=== PATIENT | female | born 1975 | race Caucasian/White ===

== ENCOUNTER 2016-07-15 15:41 | Emergency (ER) | payer BC ==
[2016-07-15 17:10] VITALS: RESP 16
--- NOTE | 2016-07-15 17:44 | UCPHY ---
H & P Time Seen by Provider: 07/15/16 17:17 Patient Type: New HPI/ROS: This patient complains of left groin pain over the past 2 days. She is uncertain if this is musculoskeletal or not. She has been taking yoga classes 2 times a week in recent months which is new for her. But she does not recall any injuries during yoga class. She states that the discomfort is mild baseline becomes more severe at times with movement or bending forward flexing her thigh. She became apprehensive with her symptoms today at home after talking to the Call line nurse and felt lightheaded when she stood up/a near- syncope type episode by her description with brief paresthesias down her left arm. The lightheadedness has resolved. No other symptoms now except for the localized discomfort to the left inguinal canal region. ROS: No fevers. No fatigue. No other constitutional symptoms HEENT: No complaints pulmonary: Patient did have a cough last week that has resolved. Cardiovascular: No chest pain. GI: No nausea vomiting. No constipation. She has noticed any obvious anatomical bulge to the area. She reports that she has never had inguinal pain like this from her kidney stones. 10 point ROS is otherwise negative. Past Medical/Surgical History: Past surgical history: C-sections x2. Kidney stones Smoking Status: Current some day smoker Physical Exam: General Appearance: Alert, no distress. Eyes: Pupils equal and round no pallor or injection. ENT, Mouth: Mucous membranes moist. Ears: External canals and TMs clear bilaterally. Respiratory: There are no retractions, lungs are clear to auscultation. Cardiovascular: Regular rate and rhythm. No murmur gallop rub. She maintains 2 + symmetric radialis pulses bilaterally. Gastrointestinal: Normoactive, soft, mild left inguinal tenderness with a slight bulge with Valsalva maneuver. This recreates her pain and causes tenderness with palpation of the area. She also has mild pain with abduction of the left thigh versus resistance but again points to the inguinal region as the source of this pain. She maintains full range of motion in her hip in other directions without change in level of discomfort. Neurological: Alert with no focal deficits. No light touch abnormalities to upper extremities. 5/5 strength is maintained throughout. Skin: dry, no rashes. There is no erythema, warmth to touch or ecchymosis overlying the affected area. Extremities are symmetrical, full range of motion. Psychiatric: Mood and affect are normal DIFFERENTIAL DIAGNOSIS: After history and physical exam differential diagnosis was considered for inguinal hernia, femoral hernia, musculoskeletal strain Constitutional: Initial Vital Signs Temperature (C) 36.7 C 07/15/16 16:59 Heart Rate 91 07/15/16 16:59 Respiratory Rate 16 07/15/16 16:59 Blood Pressure 137/63 H 07/15/16 16:59 O2 Sat (%) 99 07/15/16 16:59 O2 Delivery Mode Room Air Allergies/Adverse Reactions: cephalexin monohydrate [From Keflex] Allergy (Verified 07/15/16 16:58) Home Medications: Medication Instructions Recorded NO HOME MEDICATIONS 07/30/10 MDM/Departure - [facility] ED Course/Re-evaluation: Clinically, findings are most consistent with inguinal hernia. I counseled regarding this. She will follow up with Dr. Lincoln-general surgeon church communications administrator for further evaluation. There is no clinical evidence to suggest incarcerated hernia or other complicating factors at this time. - Depart Clinical Impression: Inguinal hernia Qualifiers: Obstruction and gangrene presence: without obstruction or gangrene Laterality: unilateral Recurrence: non-recurrent Qualifier Code: (K40.90) Unilateral inguinal hernia, without obstruction or gangrene, not specified as recurrent Instructions: Inguinal Hernia (ED) Additional Instructions: Diagnosis: Inguinal [id number] Plan: Ibuprofen and Tylenol for discomfort as needed Avoid lifting more than 10 lb or so Avoid heavy exertion Use a stool softener if he develops any constipation avoid heavy straining Call Dr. Puri-general surgeon to arrange follow-up appointment for further evaluation. Go to the emergency department for any significant worsening despite the treatment plan Stand Alone Forms: Work Limited Duty Referrals: NONE *PRIMARY CARE P,. [Primary Care Provider] - As per Instructions Benjamín Puri MD [Medical Doctor] - As per Instructions - PQRS PQRS Measurement: NA
[2016-07-15 18:20] VITALS: BP 139/90; PULSE 85; TEMP 98.8; O2SAT 98
== END 2016-07-15 18:18 | disposition home or self-care (01) ==
LOC: CED 15:41
DX: K40.90 Unilateral inguinal hernia, without obstruction or gangrene, not specified as recurrent (principal); Z87.442 Personal history of urinary calculi; Z72.0 Tobacco use
CPT/HCPCS: 99203-PO; G0463-PO